=== PATIENT | male | born 1975 | race Caucasian/White ===

== ENCOUNTER 2021-03-29 16:45 | Emergency (ER) | payer OTHER ==
[2021-03-29 16:59] VITALS: BP 158/87; PULSE 89; TEMP 97.8; BMI 45.7
[2021-03-29] MEDS ORDERED: KETOROLAC TROMETHAMINE 60 MG/2 ML VIAL IM ONE (17:39)
[2021-03-29] MEDS ORDERED: KETOROLAC TROMETHAMINE 60 MG/2 ML VIAL ONE (17:42)
== END 2021-03-29 19:10 | disposition home or self-care (01) ==
LOC: FER 16:45
PROC: 3E0233Z Introduction of Anti-inflammatory into Muscle, Percutaneous Approach (ICD-10-PCS; principal; 2021-03-29)
DX: S86.911A Strain of unspecified muscle(s) and tendon(s) at lower leg level, right leg, initial encounter (principal)
CPT/HCPCS: 73523-TC-FY; 99284-25

== ENCOUNTER 2021-11-13 19:10 | Emergency (ER) | payer OTHER ==
[2021-11-13 19:45] VITALS: BP 153/87; PULSE 72; TEMP 98.6; BMI 46.2
[2021-11-16 00:07] LABS: SARS-CoV-2 NAA Not Detected (Not Detected)
== END 2021-11-13 19:54 | disposition home or self-care (01) ==
LOC: FER 19:10
DX: Z20.822 Contact with and (suspected) exposure to COVID-19 (principal)
CPT/HCPCS: 99283-25; C9803; U0003; U0005

== ENCOUNTER 2021-12-25 13:10 | Emergency (ER) | payer OTHER ==
[2021-12-25 13:39] VITALS: BP 136/78; PULSE 85; TEMP 98.6; BMI 46.2
[2021-12-25] MEDS ORDERED: ACETAMINOPHEN 500 MG TABLET (FP) PO ONE (13:44)
[2021-12-25] MEDS ORDERED: ACETAMINOPHEN 500 MG TABLET (FP) ONE (14:12)
[2021-12-25] MEDS ORDERED: KETOROLAC TROMETHAMINE 60 MG/2 ML VIAL IM ONE (14:12)
[2021-12-25] MEDS ORDERED: KETOROLAC TROMETHAMINE 60 MG/2 ML VIAL ONE (14:15)
== END 2021-12-25 14:30 | disposition home or self-care (01) ==
LOC: FER 13:10
PROC: 3E0233Z Introduction of Anti-inflammatory into Muscle, Percutaneous Approach (ICD-10-PCS; principal; 2021-12-25)
DX: S40.011A Contusion of right shoulder, initial encounter (principal); M25.511 Pain in right shoulder; W01.0XXA Fall on same level from slipping, tripping and stumbling without subsequent striking against object, initial encounter
CPT/HCPCS: 73030-TC-RT-FY; 99284-25

== ENCOUNTER 2022-03-28 15:47 | Emergency (ER) | payer OTHER ==
[2022-03-28 16:06] VITALS: BP 129/67; PULSE 72; TEMP 98.9; BMI 49.8
[2022-03-28] MEDS ORDERED: SODIUM CHLORIDE 1,000 ML IV STA (16:06)
[2022-03-28 16:45] LABS: HEMOGLOBIN 15.4 G/dL (11.7-16.9); MCH 34.1 pg (25.7-33.7); MEAN CELL VOLUME 97.3 fl (80-96); MEAN PLT VOLUME 8.6 fl (7.5-11.1); PLATELET COUNT 175.9 10^3/uL (134-434); RBC 4.52 10^6/uL (4.00-5.60); RDW 13.6 % (11.9-15.9); WHITE BLOOD COUNT 7.8 10^3/uL (4.0-10.8)
[2022-03-28 16:50] LABS: ALBUMIN 3.5 g/dl (3.4-5.0); BILIRUBIN,TOTAL 0.6 mg/dl (0.2-1); CALCIUM 8.5 mg/dl (8.5-10); CREATININE 0.8 mg/dl (0.55-1.3)
[2022-03-28] MEDS ORDERED: POTASSIUM CHLORIDE TABS 20 MEQ TABLET.ER (FP) PO ONE ×2 (16:57→17:08)
[2022-03-28 17:45] LABS: PLATELET ESTIMATE ADEQUATE
== END 2022-03-28 18:00 | disposition home or self-care (01) ==
LOC: FER 15:47
PROC: 3E0337Z Introduction of Electrolytic and Water Balance Substance into Peripheral Vein, Percutaneous Approach (ICD-10-PCS; principal; 2022-03-28)
DX: R19.7 Diarrhea, unspecified (principal)
CPT/HCPCS: 36415; 80053; 85027; 99284-25